=== PATIENT | male | born 1940 | race African-American/Black ===

== ENCOUNTER 2019-10-12 12:22 | Inpatient (IN) | payer MEDICARE, MEDICAID ==
[~2019-10-12] VITALS: Ht 182.9 cm; Wt 93.0 kg
[~2019-10-12 12:22] MED LIST: AMIO200T PO; ASPI-1497 PO; B50 GT; CLOP75TA33 PO; FOLI-43 PO; LEVO100T9 PO; OMEP20TA2 PO; P50 PO; SERT50TA12 PO; SIMV-43 PO; TAMS0.4C31 PO; TERA5CAP4 PO; TRIA1TAB94 PO; VERA240C2 PO; ZOLP10TA6 PO
[2019-10-12] MEDS ORDERED: FUROSEMIDE 40MG/4ML VIAL IV ONE (16:30)
[2019-10-12 17:12] LABS: HEMATOCRIT. 38.1 % (42.0-52.0); HEMOGLOBIN. 12.5 g/dL (14.0-18.0); MEAN CORPUSCULAR HEMOGLOBIN 29.3 pg (28.0-32.0); MEAN PLATELET VOLUME 9.5 fl (7.4-10.4); PLATELET 136 x1000/uL (130-400); RED BLOOD CELL COUNT 4.28 mill/uL (4.7-6.1); RED CELL DISTRIBUTION WIDTH 16.8 % (11.6-14.6)
[2019-10-12 17:20] LABS: CHLORIDE 110 mEq/L (98-107)
[2019-10-12 17:21] LABS: INR 1.2; PROTHROMBIN TIME 12.9 sec (9.6-11.0)
[2019-10-12 18:15] LABS: PLATELET ESTIMATE NORMAL
[2019-10-12 22:42] VITALS: BP 123/67
[2019-10-13] VITALS: BP 127/71
[2019-10-13] MEDS ORDERED: ACETAMINOPHEN 325MG TABLET PO PRN (00:30)
[2019-10-13] MEDS: TERAZOSIN HCL 5MG CAPSULE PO SCH ×3 (01:21→21:00)
[2019-10-13] MEDS: ZOLPIDEM TARTRATE 5MG TABLET PO PRN ×2 (01:21→21:55)
[2019-10-13 04:00] VITALS: BP 107/66
[2019-10-13 05:43] LABS: BASOPHILS % 0.3 % (0.0-2.0); EOSINOPHILS % 0.2 % (0.0-5.0); HEMOGLOBIN. 11.9 g/dL (14.0-18.0); LYMPHOCYTES % 9.3 % (20.0-50.0); MEAN CORPUSCULAR HEMOGLOBIN 29.1 pg (28.0-32.0); MEAN CORPUSCULAR VOLUME 88.3 fL (80.0-94.0); MEAN PLATELET VOLUME 8.2 fl (7.4-10.4); MONOCYTES % 7.2 % (2.0-8.0); PLATELET 104 x1000/uL (130-400); RED BLOOD CELL COUNT 4.08 mill/uL (4.7-6.1); RED CELL DISTRIBUTION WIDTH 16.2 % (11.6-14.6)
[2019-10-13 05:48] LABS: INR 1.2; PROTHROMBIN TIME 13.2 sec (9.6-11.0)
[2019-10-13 05:52] LABS: CHLORIDE 110 mEq/L (98-107)
[2019-10-13] MEDS: OMEPRAZOLE 20MG CAPSULE EXTENDED RELEASE PO SCH ×2 (06:36→06:40)
[2019-10-13 08:00] VITALS: BP 151/67
[2019-10-13] MEDS: ENOXAPARIN 40MG/0.4ML SYR SUBCUT SCH (08:00)
[2019-10-13] MEDS ORDERED: LIDOCAINE HCL 1% 20ML VIAL (Pyxis) INJ ONE (09:38)
[2019-10-13] MEDS ORDERED: SODIUM BICARBONATE 4% (2.4MEQ) 5ML VIAL IV ONE (09:38)
[2019-10-13] MEDS ORDERED: ASPIRIN 81MG EC TABLET PO SCH (10:00)
[2019-10-13] MEDS: LEVOTHYROXINE SODIUM 100MCG TABLET PO SCH (11:40)
[2019-10-13] MEDS: TAMSULOSIN HCL 0.4MG SR CAPSULE PO SCH (11:40)
[2019-10-13] MEDS: AMIODARONE HCL 200 MG TABLET PO SCH (11:40)
[2019-10-13] MEDS: FOLIC ACID 1MG TABLET PO SCH (11:41)
[2019-10-13 12:00] VITALS: BP 120/68
[2019-10-13 12:26] LABS: CREATINE KINASE 169 IU/L (39-308)
[2019-10-13] MEDS: VERAPAMIL HCL 120MG TABLET PO SCH ×2 (13:45→21:59)
[2019-10-13 16:00] VITALS: BP 109/69
[2019-10-13] MEDS: SERTRALINE HCL 50MG TABLET PO SCH (17:21)
[2019-10-13 20:00] VITALS: BP 108/69
[2019-10-14] VITALS: BP 121/84
[2019-10-14 04:00] VITALS: BP 114/69
[2019-10-14 05:56] LABS: BASOPHILS % 0.5 % (0.0-2.0); EOSINOPHILS % 0.5 % (0.0-5.0); LYMPHOCYTES % 7.2 % (20.0-50.0); MEAN CORPUSCULAR HEMOGLOBIN 29.6 pg (28.0-32.0); MEAN CORPUSCULAR VOLUME 88.9 fL (80.0-94.0); MEAN PLATELET VOLUME 8.5 fl (7.4-10.4); NEUTROPHILS % 82.8 % (40.0-76.0); PLATELET 101 x1000/uL (130-400); RED BLOOD CELL COUNT 4.05 mill/uL (4.7-6.1); RED CELL DISTRIBUTION WIDTH 16.4 % (11.6-14.6)
[2019-10-14 06:00] LABS: CHLORIDE 110 mEq/L (98-107)
[2019-10-14 06:27] LABS: HEPATITIS B SURFACE ANTIGEN NEGATIVE
[2019-10-14] MEDS: VERAPAMIL HCL 120MG TABLET PO SCH ×3 (06:48→21:25)
[2019-10-14] MEDS: OMEPRAZOLE 20MG CAPSULE EXTENDED RELEASE PO SCH (06:48)
[2019-10-14 06:57] LABS: HEPATITIS A AB IGM NEGATIVE (NEGATIVE)
[2019-10-14 08:00] VITALS: BP 108/63
[2019-10-14] MEDS: TAMSULOSIN HCL 0.4MG SR CAPSULE PO SCH (08:23)
[2019-10-14] MEDS: FOLIC ACID 1MG TABLET PO SCH (08:24)
[2019-10-14] MEDS: LEVOTHYROXINE SODIUM 100MCG TABLET PO SCH (08:24)
[2019-10-14] MEDS: TERAZOSIN HCL 5MG CAPSULE PO SCH ×2 (08:27→21:25)
[2019-10-14] MEDS: AMIODARONE HCL 200 MG TABLET PO SCH (08:27)
[2019-10-14] MEDS: ENOXAPARIN 40MG/0.4ML SYR SUBCUT SCH (08:28)
[2019-10-14] MEDS: SODIUM CHLORIDE 0.45% 1,000 ML IV SCH ×2 (10:06→21:26)
[2019-10-14 12:00] VITALS: BP 110/56
[2019-10-14] MEDS: LACTULOSE 20G/30ML UDC PO SCH ×2 (13:25→21:32)
[2019-10-14 16:00] VITALS: BP 103/63
[2019-10-14] MEDS: SERTRALINE HCL 50MG TABLET PO SCH (17:33)
[2019-10-14 20:00] VITALS: BP 121/68
[2019-10-14] MEDS: ZOLPIDEM TARTRATE 5MG TABLET PO PRN (21:24)
[2019-10-15] VITALS: BP 112/67
[2019-10-15 04:00] VITALS: BP 121/67
[2019-10-15] MEDS: IPRATROPIUM/ALBUTEROL 0.5-3(2.5)MG/3ML NEB HHN SCH ×5 (04:00→20:54)
[2019-10-15] MEDS: LACTULOSE 20G/30ML UDC PO SCH ×3 (06:00→21:25)
[2019-10-15] MEDS: VERAPAMIL HCL 120MG TABLET PO SCH (06:34)
[2019-10-15] MEDS: OMEPRAZOLE 20MG CAPSULE EXTENDED RELEASE PO SCH (06:34)
[2019-10-15 08:00] VITALS: BP 102/66
[2019-10-15 09:07] LABS: CHLORIDE 109 mEq/L (98-107)
[2019-10-15] MEDS: ENOXAPARIN 40MG/0.4ML SYR SUBCUT SCH (09:13)
[2019-10-15] MEDS: TERAZOSIN HCL 5MG CAPSULE PO SCH ×2 (09:14→21:24)
[2019-10-15] MEDS: FOLIC ACID 1MG TABLET PO SCH (09:15)
[2019-10-15] MEDS: LEVOTHYROXINE SODIUM 100MCG TABLET PO SCH (09:15)
[2019-10-15] MEDS: AMIODARONE HCL 200 MG TABLET PO SCH (09:16)
[2019-10-15] MEDS: TAMSULOSIN HCL 0.4MG SR CAPSULE PO SCH (09:16)
[2019-10-15 12:00] VITALS: BP 112/67
[2019-10-15] MEDS: SODIUM CHLORIDE 0.45% 1,000 ML IV SCH ×2 (13:59→23:20)
[2019-10-15 16:00] VITALS: BP 130/71
[2019-10-15] MEDS: HYDROCODONE/ACETAMINOPHEN 5/325MG TABLET PO SCH (17:51)
[2019-10-15] MEDS: SERTRALINE HCL 50MG TABLET PO SCH (17:51)
[2019-10-15 20:00] VITALS: BP 117/63
[2019-10-15] MEDS: ZOLPIDEM TARTRATE 5MG TABLET PO PRN (21:25)
[2019-10-15] MEDS: AMLODIPINE 2.5MG TABLET PO SCH (21:25)
[2019-10-16] VITALS: BP 113/60
[2019-10-16] MEDS: IPRATROPIUM/ALBUTEROL 0.5-3(2.5)MG/3ML NEB HHN SCH ×6 (01:17→19:48)
[2019-10-16 04:00] VITALS: BP 120/74
[2019-10-16] MEDS: LACTULOSE 20G/30ML UDC PO SCH ×3 (06:00→21:48)
[2019-10-16 06:20] LABS: HEMATOCRIT. 36.4 % (42.0-52.0); HEMOGLOBIN. 12.1 g/dL (14.0-18.0); MEAN CORPUSCULAR HEMOGLOBIN 29.2 pg (28.0-32.0); MEAN CORPUSCULAR VOLUME 87.9 fL (80.0-94.0); MEAN PLATELET VOLUME 8.4 fl (7.4-10.4); PLATELET 110 x1000/uL (130-400); RED BLOOD CELL COUNT 4.14 mill/uL (4.7-6.1)
[2019-10-16] MEDS: OMEPRAZOLE 20MG CAPSULE EXTENDED RELEASE PO SCH (06:30)
[2019-10-16 08:00] VITALS: BP 108/66
[2019-10-16 08:02] LABS: CHLORIDE 109 mEq/L (98-107)
[2019-10-16] MEDS: TERAZOSIN HCL 5MG CAPSULE PO SCH ×2 (08:36→21:00)
[2019-10-16] MEDS: AMLODIPINE 2.5MG TABLET PO SCH ×2 (08:36→21:00)
[2019-10-16] MEDS: TAMSULOSIN HCL 0.4MG SR CAPSULE PO SCH (08:39)
[2019-10-16] MEDS: LEVOTHYROXINE SODIUM 100MCG TABLET PO SCH (08:39)
[2019-10-16] MEDS: FOLIC ACID 1MG TABLET PO SCH (08:40)
[2019-10-16] MEDS: ENOXAPARIN 40MG/0.4ML SYR SUBCUT SCH (08:40)
[2019-10-16 10:52] LABS: PLATELET ESTIMATE SLIGHTLY DECREASED
[2019-10-16] MEDS ORDERED: LIDOCAINE HCL 1% 20ML VIAL (Pyxis) INJ ONE (11:14)
[2019-10-16 12:00] VITALS: BP 116/65
[2019-10-16] MEDS: SODIUM CHLORIDE 0.45% 1,000 ML IV SCH ×2 (13:20→21:47)
[2019-10-16 15:46] LABS: INR 1.1; PARTIAL THROMBOPLASTIN TIME 31.2 sec (23.4-31.0); PROTHROMBIN TIME 12.3 sec (9.6-11.0)
[2019-10-16 16:00] VITALS: BP 130/62
[2019-10-16] MEDS: HYDROCODONE/ACETAMINOPHEN 5/325MG TABLET PO SCH (16:23)
[2019-10-16] MEDS ORDERED: ALBUTEROL (0.083%) 2.5MG/3ML NEB HHN ONE (16:45)
[2019-10-16] MEDS: SERTRALINE HCL 50MG TABLET PO SCH (17:34)
[2019-10-16 20:38] VITALS: BP 128/69
[2019-10-16] MEDS: ZOLPIDEM TARTRATE 5MG TABLET PO PRN (21:46)
[2019-10-17] MEDS: IPRATROPIUM/ALBUTEROL 0.5-3(2.5)MG/3ML NEB HHN SCH ×6 (00:51→20:10)
[2019-10-17 00:52] VITALS: BP 102/55
[2019-10-17 04:47] VITALS: BP 109/70
[2019-10-17] MEDS: LACTULOSE 20G/30ML UDC PO SCH ×4 (06:00→22:09)
[2019-10-17] MEDS: OMEPRAZOLE 20MG CAPSULE EXTENDED RELEASE PO SCH (06:19)
[2019-10-17 08:21] VITALS: BP 92/53
[2019-10-17] MEDS: TERAZOSIN HCL 5MG CAPSULE PO SCH ×2 (09:00→22:09)
[2019-10-17] MEDS: AMLODIPINE 2.5MG TABLET PO SCH ×2 (09:00→22:09)
[2019-10-17] MEDS ORDERED: LIDOCAINE HCL 1% 20ML VIAL (Pyxis) INJ ONE (09:26)
[2019-10-17] MEDS ORDERED: SODIUM BICARBONATE 4% (2.4MEQ) 5ML VIAL IV ONE (09:27)
[2019-10-17] MEDS: SODIUM CHLORIDE 0.45% 1,000 ML IV SCH ×2 (10:11→22:12)
[2019-10-17] MEDS: FOLIC ACID 1MG TABLET PO SCH (10:23)
[2019-10-17] MEDS: TAMSULOSIN HCL 0.4MG SR CAPSULE PO SCH (10:23)
[2019-10-17] MEDS: LEVOTHYROXINE SODIUM 100MCG TABLET PO SCH (10:23)
[2019-10-17] MEDS: MEGESTROL ACETATE 400 MG/10 ML UDC PO SCH (10:24)
[2019-10-17 12:03] VITALS: BP 123/62
[2019-10-17 12:26] LABS: HEMATOCRIT. 37.1 % (42.0-52.0); HEMOGLOBIN. 12.3 g/dL (14.0-18.0); MEAN CORPUSCULAR HEMOGLOBIN 29.1 pg (28.0-32.0); MEAN CORPUSCULAR VOLUME 88.1 fL (80.0-94.0); MEAN PLATELET VOLUME 8.6 fl (7.4-10.4); PLATELET 102 x1000/uL (130-400); RED BLOOD CELL COUNT 4.21 mill/uL (4.7-6.1)
[2019-10-17 16:32] VITALS: BP 119/69
[2019-10-17] MEDS: SERTRALINE HCL 50MG TABLET PO SCH (17:37)
[2019-10-17] MEDS: HYDROCODONE/ACETAMINOPHEN 5/325MG TABLET PO SCH (17:38)
[2019-10-17 20:00] VITALS: BP 127/68
[2019-10-17] MEDS: ZOLPIDEM TARTRATE 5MG TABLET PO PRN (22:09)
[2019-10-18] VITALS: BP 116/57
[2019-10-18] MEDS: IPRATROPIUM/ALBUTEROL 0.5-3(2.5)MG/3ML NEB HHN SCH ×3 (00:48→10:11)
[2019-10-18 04:00] VITALS: BP 125/72
[2019-10-18] MEDS: LACTULOSE 20G/30ML UDC PO SCH (06:00)
[2019-10-18] MEDS: OMEPRAZOLE 20MG CAPSULE EXTENDED RELEASE PO SCH (06:55)
[2019-10-18 07:03] LABS: BASOPHILS % 0.2 % (0.0-2.0); EOSINOPHILS % 0.3 % (0.0-5.0); HEMATOCRIT. 38.3 % (42.0-52.0); HEMOGLOBIN. 12.7 g/dL (14.0-18.0); MEAN CORPUSCULAR HEMOGLOBIN 29.3 pg (28.0-32.0); MEAN CORPUSCULAR VOLUME 88.5 fL (80.0-94.0); MEAN PLATELET VOLUME 8.3 fl (7.4-10.4); MONOCYTES % 6.2 % (2.0-8.0); NEUTROPHILS % 84.3 % (40.0-76.0); PLATELET 110 x1000/uL (130-400); RED BLOOD CELL COUNT 4.33 mill/uL (4.7-6.1); RED CELL DISTRIBUTION WIDTH 17.4 % (11.6-14.6)
[2019-10-18 07:05] LABS: INR 1.2; PARTIAL THROMBOPLASTIN TIME 29.4 sec (23.4-31.0); PROTHROMBIN TIME 12.7 sec (9.6-11.0)
[2019-10-18 07:39] LABS: CHLORIDE 107 mEq/L (98-107)
[2019-10-18 07:52] LABS: PLATELET ESTIMATE SLIGHTLY DECREASED
[2019-10-18 08:00] VITALS: BP 121/67
[2019-10-18] MEDS ORDERED: LACT10SO MT (08:59)
[2019-10-18] MEDS ORDERED: SPIR25TA6 MT (08:59)
[2019-10-18] MEDS ORDERED: SPIRONOLACTONE 25MG TABLET PO SCH (09:00)
[2019-10-18] MEDS: MEGESTROL ACETATE 400 MG/10 ML UDC PO SCH (09:33)
[2019-10-18] MEDS: LEVOTHYROXINE SODIUM 100MCG TABLET PO SCH (09:33)
[2019-10-18] MEDS: TERAZOSIN HCL 5MG CAPSULE PO SCH (09:33)
[2019-10-18] MEDS: FOLIC ACID 1MG TABLET PO SCH (09:33)
[2019-10-18] MEDS: TAMSULOSIN HCL 0.4MG SR CAPSULE PO SCH (09:34)
[2019-10-18] MEDS: AMLODIPINE 2.5MG TABLET PO SCH (09:34)
[2019-10-18 12:00] VITALS: BP 103/57
== END 2019-10-18 13:00 | disposition home or self-care (01) | DRG 432 ==
LOC: ER 12:22 → ENRESERV 20:39 → 6WST 22:46
PROVIDERS: ADMIT Internal Medicine Geriatric Medicine; ATTEND Internal Medicine Geriatric Medicine
PROC: 0W9G3ZZ Drainage of Peritoneal Cavity, Percutaneous Approach (ICD-10-PCS; principal; 2019-10-13)
PROC: 02HV33Z Insertion of Infusion Device into Superior Vena Cava, Percutaneous Approach (ICD-10-PCS; 2019-10-16)
PROC: B548ZZA Ultrasonography of Superior Vena Cava, Guidance (ICD-10-PCS; 2019-10-16)
PROC: 0W9G3ZZ Drainage of Peritoneal Cavity, Percutaneous Approach (ICD-10-PCS; 2019-10-17)
DX: K74.69 Other cirrhosis of liver (principal); E43 Unspecified severe protein-calorie malnutrition; C22.0 Liver cell carcinoma; N17.9 Acute kidney failure, unspecified; R18.8 Other ascites; K76.89 Other specified diseases of liver; D63.8 Anemia in other chronic diseases classified elsewhere; I25.10 Atherosclerotic heart disease of native coronary artery without angina pectoris; F41.1 Generalized anxiety disorder; F02.80 Dementia in other diseases classified elsewhere, unspecified severity, without behavioral disturbance, psychotic disturbance, mood disturbance, and anxiety; G30.9 Alzheimer's disease, unspecified; E03.9 Hypothyroidism, unspecified; E78.5 Hyperlipidemia, unspecified; J44.9 Chronic obstructive pulmonary disease, unspecified; K21.9 Gastro-esophageal reflux disease without esophagitis; K27.9 Peptic ulcer, site unspecified, unspecified as acute or chronic, without hemorrhage or perforation; N18.9 Chronic kidney disease, unspecified; D69.6 Thrombocytopenia, unspecified; N40.0 Benign prostatic hyperplasia without lower urinary tract symptoms; B18.2 Chronic viral hepatitis C; D49.0 Neoplasm of unspecified behavior of digestive system; K57.90 Diverticulosis of intestine, part unspecified, without perforation or abscess without bleeding; Z96.651 Presence of right artificial knee joint; I13.10 Hypertensive heart and chronic kidney disease without heart failure, with stage 1 through stage 4 chronic kidney disease, or unspecified chronic kidney disease; I73.9 Peripheral vascular disease, unspecified; Z60.2 Problems related to living alone; R59.0 Localized enlarged lymph nodes; B19.20 Unspecified viral hepatitis C without hepatic coma; R00.1 Bradycardia, unspecified; Z95.5 Presence of coronary angioplasty implant and graft; Z95.1 Presence of aortocoronary bypass graft; I25.2 Old myocardial infarction; Z86.73 Personal history of transient ischemic attack (TIA), and cerebral infarction without residual deficits; Z79.82 Long term (current) use of aspirin; Z79.899 Other long term (current) drug therapy; Z91.041 Radiographic dye allergy status
CPT/HCPCS: 36415; 36573; 49083; 71045; 74176; 76700; 76937; 80048; 80053; 82105; 82140; 82378; 82550; 83880; 84443; 84484; 85025; 86301; 86705; 86709; 86803; 87015; 87045; 87340; 87427; 87449; 87493; 88108; 88312; 89055; 93005; 93306; 94640; 96374; 97116; 97162; 99285; C1725; J1650; J1940; J3490